=== PATIENT | female | born 1990 | race African-American/Black ===

== ENCOUNTER 2018-11-11 14:06 | Outpatient (CLI) | payer OTHER | END 2018-11-11 23:12 | disposition home or self-care (01) | LOC: CT 14:06 | DX: J32.1 Chronic frontal sinusitis (principal) ==

== ENCOUNTER 2018-11-27 02:49 | Emergency (ER) | payer OTHER ==
[~2018-11-27] VITALS: Ht 152.4 cm; Wt 61.7 kg
[2018-11-27 04:01] LABS: PLATELET COUNT 278 K/uL (152-353)
[2018-11-27 04:07] LABS: POTASSIUM 3.6 mmol/L (3.6-5.2)
[2018-11-27 05:09] VITALS: BP 105/73; TEMP 97.3
== END 2018-11-27 05:12 | disposition home or self-care (01) ==
LOC: ED 02:49
PROVIDERS: Family Medicine
DX: R11.2 Nausea with vomiting, unspecified (principal); K29.70 Gastritis, unspecified, without bleeding; R31.9 Hematuria, unspecified
CPT/HCPCS: 80053; 81000; 85027; 87651; 96360; 96365; 96375; 99284; J1885; J2405; J3490